=== PATIENT | male | born 1965 | race Caucasian/White ===

== ENCOUNTER 2020-04-10 19:17 | Observation (INO) | payer BC, OTHER ==
[2020-04-10 19:57] LABS: Absolute Lymphocytes (CBC) 2.2 K/uL (0.7-4.9); Basophils % 0.8 % (0-1.3); Lymphocytes % 25.6 % (15.3-44.8); MPV 7.7 fL (7.6-11.3); RBC Red Blood Cell Count 5.48 M/uL (4.33-5.43)
[2020-04-10 20:07] LABS: ALT/SGPT 72 U/L (12-78); AST/SGOT 39 U/L (15-37); Albumin 4.1 g/dL (3.4-5.0); Alkaline Phosphatase 66 U/L (45-117); BUN Blood Urea Nitrogen 15 mg/dL (7-18); Bicarbonate 25 mmol/L (21-32); Bilirubin Direct 0.1 mg/dL (0-0.2); Bilirubin Total 0.5 mg/dL (0.2-1.0); Glucose Level 106 mg/dL (74-106); Magnesium 2.4 mg/dL (1.8-2.4); NT PRO-BNP 47 pg/mL (<125); Potassium 3.8 mmol/L (3.5-5.1); Protein, Total 8.1 g/dL (6.4-8.2); Sodium Level 140 mmol/L (136-145); Troponin (Emerg Dept Use Only) < 0.02 ng/mL (0.0-0.045)
--- NOTE | 2020-04-10 20:08 | ER ---
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 Coronavirus screen: Proceed with normal triage. Ebola Screen: Patient negative for fever greater than or equal to 101.5 degrees Fahrenheit, and additional compatible Ebola Virus Disease symptoms Patient denies exposure to infectious person. Patient denies travel to an Ebola-affected area in the 21 days before illness onset. No symptoms or risks identified at this time. Initial Sepsis Screen: Does the patient meet any 2 criteria? No. Patient's initial sepsis screen is negative. Does the patient have a suspected source of infection? No. Patient's initial sepsis screen is negative. Risk Assessment: Do you want to hurt yourself or someone else? Patient reports no desire to harm self or others. Onset of symptoms was April 10, 2020. Care prior to arrival: None. Transition of care: patient was not received from another setting of care. 19:20 Method Of Arrival: Ambulatory sg 19:20 Acuity: KATHERINE 3 sg Triage Assessment: 19:30 General: Appears in no apparent distress. Behavior is calm, cooperative, appropriate vc for age. Pain: Complains of pain in chest Pain radiates to left arm Pain currently is 2 out of 10 on a pain scale. Quality of pain is described as pressure, Pain began gradually. Cardiovascular: Capillary refill < 3 seconds Patient's skin is warm and dry. Rhythm is atrial fibrillation with rapid ventricular response. Historical: - Allergies: 19:33 PENICILLINS; sg - Home Meds: 19:33 Lisinopril Oral [Active]; Antacid [Active]; Joint Pain Reliver [Active]; sg - PMHx: 19:33 Hypertension; sg - PSHx: 19:33 Hernia repair; Disc surgery; sg - Immunization history:: Adult Immunizations up to date. - Social history:: Smoking status: Patient denies any tobacco usage or history of. - Family history:: not pertinent. Screenin:20 Abuse screen: Denies threats or abuse. Nutritional screening: No deficits noted. vc Tuberculosis screening: No symptoms or risk factors identified. Fall Risk None identified. Assessment: 19:30 General: Appears in no apparent distress. uncomfortable, obese, Behavior is calm, vc cooperative, appropriate for age. Pain: Complains of pain in chest Also complains of nausea, diaphoresis. Pain: Pain does not radiate. Pain: Pain currently is 4 out of 10 on a pain scale. Quality of pain is described as pressure. Pain: Is continuous, Alleviated by nothing. Neuro: Level of Consciousness is awake, alert, obeys commands, Oriented to person, place, time, situation, Reports numbness in left arm. Cardiovascular: Reports chest pain, diaphoresis, nausea, palpitations, shortness of breath, Capillary refill < 3 seconds Patient's skin is warm and dry. Rhythm is atrial fibrillation with rapid ventricular response. Respiratory: Airway is patent Respiratory effort is even, unlabored, Respiratory pattern is regular, symmetrical. GI: Abdomen is non-distended, obese, Reports nausea. : No signs and/or symptoms were reported regarding the genitourinary system. EENT: No signs and/or symptoms were reported regarding the EENT system. Derm: Skin is intact, Skin is diaphoretic. Musculoskeletal: Circulation, motion, and sensation intact. Range of motion: intact in all extremities. 20:30 Reassessment: Patient appears in no apparent distress at this time. Patient and/or vc family updated on plan of care and expected duration. Pain level reassessed. Patient is alert, oriented x 3, equal unlabored respirations, skin warm/dry/pink. Patient states symptoms have improved. 21:00 Reassessment: Admitting provider at bedside. vc 21:30 Reassessment: Patient appears in no apparent distress at this time. Patient and/or vc family updated on plan of care and expected duration. Pain level reassessed. Patient is alert, oriented x 3, equal unlabored respirations, skin warm/dry/pink. Patient states feeling better. Patient states symptoms have improved. 22:30 Reassessment: Patient appears in no apparent distress at this time. Patient and/or vc family updated on plan of care and expected duration. Pain level reassessed. Patient is alert, oriented x 3, equal unlabored respirations, skin warm/dry/pink. Patient states feeling better. 23:30 Reassessment: Patient appears in no apparent distress at this time. Patient and/or vc family updated on plan of care and expected duration. Pain level reassessed. Patient is alert, oriented x 3, equal unlabored respirations, skin warm/dry/pink. Patient denies pain at this time. Patient states feeling better. 04/11 00:00 Reassessment: PLEASE SEE [facility] FOR FURTHER CHARTING. vc Vital Signs: 04/10 19:20 BP 166 / 125; Pulse 134; Resp 16; Temp 99.1; Pulse Ox 98% ; vc 19:33 Weight 122.47 kg (R); Height 6 ft. 0 in. (182.88 cm); sg 20:00 BP 172 / 152; Pulse 128; Resp 18; Pulse Ox 97% on R/A; vc 20:45 BP 146 / 100; Pulse 99; Resp 16; Pulse Ox 95% on R/A; vc 20:45 BP 146 / 100; Pulse 99; Resp 16; Pulse Ox 95% on R/A; vc 21:45 BP 138 / 100; Pulse 84; Resp 16; Pulse Ox 97% on R/A; vc 19:33 Body Mass Index 36.62 (122.47 kg, 182.88 cm) sg ED Course: 19:23 Patient arrived in ED. cf2 19:24 Karol Mims RN is Primary Nurse. vc 19:25 Richy Montemayor MD is Attending Physician. [facility] 19:28 Triage completed. sg 19:28 Arm band placed on. sg 19:30 Patient has correct armband on for positive identification. Placed in gown. Bed in low vc position. Call light in reach. Side rails up X2. counsellors on. Pulse ox on. NIBP on. 19:35 Inserted saline lock: 20 gauge in right wrist, using aseptic technique. Patient vc maintains SpO2 saturation greater than 95% on room air. 19:54 XRAY Chest (1 view) In Process Unspecified. EDMS 20:07 Ford Ibrahim is Hospitalizing Provider. [facility] 04/11 00:00 No provider procedures requiring assistance completed. Patient admitted, IV remains in vc place. Administered Medications: 04/10 20:20 Drug: Lovenox 1 mg/kg {Note: administered 80mg and a 40mg.} Route: Sub-Q; Site: abdomen;vc 22:00 Follow up: Response: No adverse reaction vc 20:30 Drug: Lopressor 5 mg Route: IVP; Site: right antecubital; vc 20:30 Drug: Lopressor (metoprolol TARTRATE) 50 mg Route: PO; vc 22:00 Follow up: Response: No adverse reaction vc 20:30 Drug: Aspirin Chewable Tablet 324 mg Route: PO; vc 22:00 Follow up: Response: No adverse reaction vc 20:37 Drug: Lopressor 5 mg Route: IVP; Site: right antecubital; vc 20:42 Drug: Lopressor 5 mg Route: IVP; Site: right antecubital; vc 22:00 Follow up: Response: No adverse reaction; Marked relief of symptoms vc Outcome: 20:08 Decision to Hospitalize by Provider. cayetano 04/11 00:00 Admitted to ER Hold. Please see [facility] for further documentation. vc Condition: good Instructed on the need for admit. 02:34 Patient left the ED. vc Signatures: Dispatcher [employer] EDHéctor Gunn RN RN sg Anderson, Corey, MD MD cha Frazier, Celesta cf2 Karol Mims RN RN vc Corrections: (The following items were deleted from the chart) 01:10 01:08 Reassessment: PLEASE SEE [facility] FOR FURTHER CHARTING vc vc
--- NOTE | 2020-04-10 20:09 | EDPHYS ---
Physician Documentation [facility] Name: Ramesh Olivares Age: 54 yrs Sex: Male : 1965 Arrival Date: 04/10/2020 Time: 19:23 Bed 20 Private MD: ED Physician Richy Montemayor HPI: 04/10 20:03 This 54 yrs old Male presents to ER via Ambulatory with complaints of cayetano Numbness Of Arm, Chest Pain, High Blood Pressure. 20:03 The patient or guardian complains of pain, that is acute. The complaints affect the cayetano left bicep and left tricep. Historical: - Allergies: 19:33 PENICILLINS; sg - Home Meds: 19:33 Lisinopril Oral [Active]; Antacid [Active]; Joint Pain Reliver [Active]; sg - PMHx: 19:33 Hypertension; sg - PSHx: 19:33 Hernia repair; Disc surgery; sg - Immunization history:: Adult Immunizations up to date. - Social history:: Smoking status: Patient denies any tobacco usage or history of. - Family history:: not pertinent. ROS: 20:03 Constitutional: Negative for fever, chills, and weight loss, Eyes: Negative for injury, cayetano pain, redness, and discharge, ENT: Negative for injury, pain, and discharge, Neck: Negative for injury, pain, and swelling, Respiratory: Negative for shortness of breath, cough, wheezing, and pleuritic chest pain, Abdomen/GI: Negative for abdominal pain, nausea, vomiting, diarrhea, and constipation, Back: Negative for injury and pain, : Negative for injury, bleeding, discharge, and swelling, MS/Extremity: Negative for injury and deformity, Skin: Negative for injury, rash, and discoloration, Neuro: Negative for headache, weakness, numbness, tingling, and seizure, Psych: Negative for depression, anxiety, suicide ideation, homicidal ideation, and hallucinations, Allergy/Immunology: Negative for hives, rash, and allergies, Endocrine: Negative for neck swelling, polydipsia, polyuria, polyphagia, and marked weight changes, Hematologic/Lymphatic: Negative for swollen nodes, abnormal bleeding, and unusual bruising. 20:03 Cardiovascular: Positive for chest pain, palpitations. Exam: 20:03 Constitutional: This is a well developed, well nourished patient who is awake, alert, cayetano and in no acute distress. Head/Face: Normocephalic, atraumatic. Eyes: Pupils equal round and reactive to light, extra-ocular motions intact. Lids and lashes normal. Conjunctiva and sclera are non-icteric and not injected. Cornea within normal limits. Periorbital areas with no swelling, redness, or edema. ENT: Nares patent. No nasal discharge, no septal abnormalities noted. Tympanic membranes are normal and external auditory canals are clear. Oropharynx with no redness, swelling, or masses, exudates, or evidence of obstruction, uvula midline. Mucous membranes moist. Neck: Trachea midline, no thyromegaly or masses palpated, and no cervical lymphadenopathy. Supple, full range of motion without nuchal rigidity, or vertebral point tenderness. No Meningismus. Chest/axilla: Normal chest wall appearance and motion. Nontender with no deformity. No lesions are appreciated. Respiratory: Lungs have equal breath sounds bilaterally, clear to auscultation and percussion. No rales, rhonchi or wheezes noted. No increased work of breathing, no retractions or nasal flaring. Abdomen/GI: Soft, non-tender, with normal bowel sounds. No distension or tympany. No guarding or rebound. No evidence of tenderness throughout. Back: No spinal tenderness. No costovertebral tenderness. Full range of motion. Male : Normal genitalia with no discharge or lesions. Skin: Warm, dry with normal turgor. Normal color with no rashes, no lesions, and no evidence of cellulitis. MS/ Extremity: Pulses equal, no cyanosis. Neurovascular intact. Full, normal range of motion. Neuro: Awake and alert, GCS 15, oriented to person, place, time, and situation. Cranial nerves II-XII grossly intact. Motor strength 5/5 in all extremities. Sensory grossly intact. Cerebellar exam normal. Normal gait. Psych: Awake, alert, with orientation to person, place and time. Behavior, mood, and affect are within normal limits. 20:03 Cardiovascular: Rate: tachycardic, Rhythm: irregularly irregular, Pulses: Pulses are 4+ in bilateral radial, brachial, femoral, popliteal, posterior tibial and and dorsalis pedis arteries.. Heart sounds: normal, murmur, Edema: is not appreciated, JVD: is not appreciated. 20:09 ECG was reviewed by the Attending Physician. [facility] Vital Signs: 19:20 BP 166 / 125; Pulse 134; Resp 16; Temp 99.1; Pulse Ox 98% ; vc 19:33 Weight 122.47 kg (R); Height 6 ft. 0 in. (182.88 cm); sg 20:00 BP 172 / 152; Pulse 128; Resp 18; Pulse Ox 97% on R/A; vc 20:45 BP 146 / 100; Pulse 99; Resp 16; Pulse Ox 95% on R/A; vc 20:45 BP 146 / 100; Pulse 99; Resp 16; Pulse Ox 95% on R/A; vc 21:45 BP 138 / 100; Pulse 84; Resp 16; Pulse Ox 97% on R/A; vc 19:33 Body Mass Index 36.62 (122.47 kg, 182.88 cm) sg MDM: 19:25 Patient medically screened. [facility] 20:05 Data reviewed: vital signs, nurses notes, lab test result(s), EKG, radiologic studies, [facility] plain films. 20:05 Differential diagnosis: Anxiety Reaction asthma, Myocardial Infarction pulmonary edema, cayetano Pulmonary Embolism reactive airway disease. Antibiotic administration: Not indicated. HEART Score: History: Slightly Suspicious (0), ECG: Normal (0), Age: > 45 and < 65 years (1), Risk Factors: 1 or 2 risk factors (1), [Hypertension] [Obesity]. The patient was given aspirin in the Emergency Department. The patient's Wells Deep Vein Thrombosis Score was calculated as follows: Total Score: 0-2 Pts- Low Risk. The patient's pulmonary embolism risk score was calculated as follows: the patients heart rate is greater than 100 beats per minute (1.5 Pts) Total Score: 0-2 points. This patient was found to be at low risk for a pulmonary embolism by using the Well's assessment criteria. MIKAELA Risk Score: not applicable, 1 - patient's age is greater or equal to 65 years, 1 - Three or more CAD risk factors, 1- Known CAD, 1 - ASA use in past 7 days, 1 - Recent [<24hrs] Severe Angina, 1 - Elevated Cardiac Markers, 1 - ST deviation >0.5mm, TOTAL SCORE = 0. Immunization status: Influenza vaccine: Data interpreted: air sampling and monitoring: rate is 125 beats/min, Pulse oximetry: on is 125 %. Test interpretation: by ED physician or midlevel provider: ECG, plain radiologic studies. 04/10 19:26 Order name: Basic Metabolic Panel; Complete Time: 20:08 [facility] 04/10 19:26 Order name: CBC with Diff; Complete Time: 20:08 [facility] 04/10 19:26 Order name: LFT's; Complete Time: 20:08 [facility] 04/10 19:26 Order name: Magnesium; Complete Time: 20:08 [facility] 04/10 19:26 Order name: NT PRO-BNP; Complete Time: 20:08 [facility] 04/10 19:26 Order name: Troponin (emerg Dept Use Only); Complete Time: 20:08 [facility] 04/10 19:26 Order name: XRAY Chest (1 view) [facility] 04/10 19:26 Order name: EKG; Complete Time: 19:27 [facility] 04/10 20:03 Order name: TSH; Complete Time: 20:45 [facility] 04/11 00:57 Order name: Troponin I [facility] 04/10 19:26 Order name: Cardiac monitoring; Complete Time: 19:38 [facility] 04/10 19:26 Order name: EKG - Nurse/Tech; Complete Time: 19:38 [facility] 04/10 19:26 Order name: IV Saline Lock; Complete Time: 19:38 [facility] 04/10 19:26 Order name: Labs collected and sent; Complete Time: 19:38 [facility] 04/10 19:26 Order name: O2 Per Protocol; Complete Time: 19:38 [facility] 04/10 19:26 Order name: O2 Sat Monitoring; Complete Time: 19:38 [facility] EC:09 Rate is 125 beats/min. Rhythm is irregularly irregular. QRS [place] is Normal. [place] interval cayetano is normal. QRS interval is normal. QT interval is normal. No Q waves. T waves are Normal. No ST changes noted. Clinical impression: Atrial Fibrillation and No evidence of ischemia. Interpreted by me. Reviewed by me. Administered Medications: 20:20 Drug: Lovenox 1 mg/kg {Note: administered 80mg and a 40mg.} Route: Sub-Q; Site: abdomen;vc 22:00 Follow up: Response: No adverse reaction vc 20:30 Drug: Lopressor 5 mg Route: IVP; Site: right antecubital; vc 20:30 Drug: Lopressor (metoprolol TARTRATE) 50 mg Route: PO; vc 22:00 Follow up: Response: No adverse reaction vc 20:30 Drug: Aspirin Chewable Tablet 324 mg Route: PO; vc 22:00 Follow up: Response: No adverse reaction vc 20:37 Drug: Lopressor 5 mg Route: IVP; Site: right antecubital; vc 20:42 Drug: Lopressor 5 mg Route: IVP; Site: right antecubital; vc 22:00 Follow up: Response: No adverse reaction; Marked relief of symptoms vc Disposition: 04/10/20 20:08 Hospitalization ordered by Ford Ibrahim for Observation. Preliminary diagnosis are Other chest pain, Atrial fibrillation and flutter - rvr, new onset, Essential (primary) hypertension, Obesity, unspecified. - Bed requested for Telemetry/MedSurg (observation). - Status is Observation. vc - Condition is Stable. - Problem is new. - Symptoms have improved. Signatures: Dispatcher [employer] EDMS Héctor Deras RN RN Richy Montemayor MD MD cha Attema, Lee, [employer] [employer] Lou Urbano RN RN tl1 Karol Mims RN RN vc Corrections: (The following items were deleted from the chart) 22:21 20:08 Hospitalization Ordered by Ford Ibrahim for Observation. Preliminary diagnosis tl1 is Other chest pain; Atrial fibrillation and flutter - rvr, new onset; Essential (primary) hypertension; Obesity, unspecified. Bed requested for Telemetry/MedSurg (observation). Status is Observation. Condition is Stable. Problem is new. Symptoms have improved. [facility] 04/11 01:35 04/10 22:21 04/10/2020 20:08 Hospitalization Ordered by Ford Ibrahim for Observation. tl1 Preliminary diagnosis is Other chest pain; Atrial fibrillation and flutter - rvr, new onset; Essential (primary) hypertension; Obesity, unspecified. Bed requested for [facility] ER HOLD. Status is Observation. Condition is Stable. Problem is new. Symptoms have improved. tl1 04/11 02:34 01:35 04/10/2020 20:08 Hospitalization Ordered by Ford Ibrahim for Observation. vc Preliminary diagnosis is Other chest pain; Atrial fibrillation and flutter - rvr, new onset; Essential (primary) hypertension; Obesity, unspecified. Bed requested for Telemetry/MedSurg (observation). Status is Observation. Condition is Stable. Problem is new. Symptoms have improved. tl1
[2020-04-10] MEDS ORDERED: ASPIRIN 81 MG CHEWABLE TABLET ONE (20:32)
[2020-04-10] MEDS ORDERED: METOPROLOL TAR 50 MG TAB ONE (20:32)
[2020-04-10] MEDS ORDERED: ENOXAPARIN 40 MG/0.4 ML SQ ONE (20:33)
[2020-04-10] MEDS ORDERED: METOPROLOL TARTRATE 5 MG/5 ML INJ IV ONE (20:33)
[2020-04-10] MEDS ORDERED: ENOXAPARIN 80 MG/0.8 ML SQ ONE (20:33)
--- NOTE | 2020-04-10 20:51 | RAD REPORT ---
EXAM DESCRIPTION: RAD - Chest Single View - 04/10/2020 7:54 pm CLINICAL HISTORY: CHEST PAIN COMPARISON: None TECHNIQUE: AP portable chest image was obtained 04/10/2020 7:54 pm . FINDINGS: Lungs are clear. Heart and vasculature are normal. No measurable pleural effusion and no p neumothorax. No acute bony abnormality seen. No acute aortic findings suspected. IMPRESSION: No acute cardiopulmonary process.
--- NOTE | 2020-04-10 21:27 | P.HP ---
Certification for Inpatient Patient admitted to: Observation With expected LOS: <2 Midnights Practitioner: I am a practitioner with admitting privileges, knowledge of patient current condition, hospital course, and medical plan of care. Services: Services provided to patient in accordance with Admission requirements found in Title 42 Section 412.3 of the Code of Federal Regulations Patient History Date of Service: 04/10/20 Reason for admission: Palpitation, chest tightness History of Present Illness: 54-year-old obese gentleman with a history of hypertension presented emergency department with a complaint of sudden onset of chest tightness and palpitation that persisted for several hrs today. Patient reports prior intermittent palpitation that last only a few min at a time. He denied any chest pain. Denied any cough or shortness of breath. Patient was found to be in AFib with RVR in the ED. Initial troponin is negative. Chest x-ray shows no acute abnormality. He converted to sinus rhythm spontaneously. Patient was in sinus rhythm and I saw him in the ED. No significant electrolyte abnormality. Patient is taking Saxenda short for weight loss. - Past Medical/Surgical History -: Hypertension -: Obesity -: GERD - Family History Family History: Reviewed- Non-Contributory - Social History Alcohol use: No CD- Drugs: No Place of Residence: Home Review of Systems Other: Except as documented, all other systems reviewed and negative. Physical Examination - Physical Exam General: Alert, In no apparent distress, Oriented x3, Obese HEENT: Atraumatic, Normocephalic, Mucous membr. moist/pink, Sclerae nonicteric Neck: Supple, JVD not distended Respiratory: Clear to auscultation bilaterally, Normal air movement Cardiovascular: No edema, Regular rate/rhythm, Normal S1 S2, No murmurs Capillary refill: <2 Seconds Gastrointestinal: Normal bowel sounds, Soft and benign, No tenderness Musculoskeletal: No swelling, No erythema Integumentary: No rashes Neurological: Normal speech, Normal strength at 5/5 x4 extr, Cranial nerves 3-12 intact - Studies Laboratory Data (last 24 hrs) 04/10/20 19:35: WBC 8.6, Hgb 17.5, Hct 51.0 H, Plt Count 277 04/10/20 19:35: Sodium 140, Potassium 3.8, BUN 15, Creatinine 0.90, Glucose 106, Magnesium 2.4, Total Bilirubin 0.5, AST 39 H, ALT 72, Alkaline Phosphatase 66 Assessment and Plan - Problems (Diagnosis) (1) Atrial fibrillation with RVR Current Visit: Yes Status: Acute (2) Hypertension Current Visit: Yes Status: Acute (3) GERD (gastroesophageal reflux disease) Current Visit: Yes Status: Acute (4) Obesity Current Visit: Yes Status: Acute - Plan Place under observation. Trend troponin Obtain echocardiogram Continue lisinopril for hypertension. Add low dose metoprolol Cardiology consult. Low [id number] Score. - Advance Directives Does patient have a Living Will: No Does patient have a Durable POA for Healthcare: No
[2020-04-11 00:26] VITALS: BMI 36.6
[2020-04-11] MEDS ORDERED: LIDOCAINE 1% W/EPI 1:100,000 MDV 50 ML VIAL ONE (01:37)
[2020-04-11 03:16] VITALS: O2SAT 98
[2020-04-11 04:37] LABS: Absolute Lymphocytes (CBC) 2.2 K/uL (0.7-4.9); Basophils % 0.5 % (0-1.3); Hematocrit 46.8 % (39.6-49.0); Lymphocytes % 28.2 % (15.3-44.8); RBC Red Blood Cell Count 4.89 M/uL (4.33-5.43)
[2020-04-11 04:48] LABS: Magnesium 2.6 mg/dL (1.8-2.4); Potassium 4.2 mmol/L (3.5-5.1)
[2020-04-11] MEDS ORDERED: METOPROLOL TAR 25 MG TAB PO SCH ×2 (06:00→18:00)
[2020-04-11 08:52] LABS: Urine Appearance CLEAR; Urine Bilirubin NEGATIVE (NEG); Urine Blood NEGATIVE (NEG); Urine Color YELLOW; Urine Glucose NEGATIVE (NEG); Urine Protein NEGATIVE (NEG); Urine Specific Gravity 1.025 (1.005-1.030); Urine Urobilinogen 0.2 mg/dL (0.2-1.0)
[2020-04-11 08:57] LABS: Urine Microscopic Reflex NO UMIC
[2020-04-11] MEDS ORDERED: ENOXAPARIN 40 MG/0.4 ML SQ SCH (09:00)
--- NOTE | 2020-04-11 10:50 | CON ---
Date of Consultation: 04/11/2020 Chief Complaint: Chest pain and palpitations. History Of Present Illness: This is a 54-year-old male with history of hypertension, presented to [facility] emergency room with palpitations and chest pain started last night and it is described as the tight ness in the left chest and across the sternum that goes to the upper extremities. Denies having any shortness of breath, but felt nauseated with it and also felt some palpitations, was found to have at rial fibrillation with RVR in the emergency room and then converted to sinus rhythm spontaneously. D oes not have any nausea, vomiting, diarrhea, or further palpitations. Past Medical History: Hypertension, obesity, and acid reflux. Medications: Refer to reconciliation sheet for detailed list. Allergies: REVIEWED. Family History: No premature coronary artery disease or cancer. Social History: Does not smoke or drink. Does not use any drugs. Review of Systems: All systems reviewed, they were negative except for mentioned in the HPI. Physical Examination: Vital Signs: Temperature showed 99.1, heart rate is 77, breathing at 18, blood pressure 116/95, satu rating 94% on room air. General: Pleasant, middle-aged male, in no apparent distress. Head and Neck: Pupils are equal, react to light. Intact eye movements. No JVD. No cervical lympha denopathy. Neck: Supple. Thyroid is not enlarged. Lungs: Clear to auscultation bilaterally. No rhonchi, rales, or crackles. No accessory muscle use. Heart: Regular rate and rhythm. No extra sounds. Abdomen: Soft, nontender. Bowel sounds positive. No organomegaly. No masses or hernia. No rigidi ty or rebound. Extremities: No edema, clubbing, or cyanosis. Intact pulses. Skin: No rash noted. Neurologic: Alert, awake, and oriented x3. No acute focal deficits associated. Investigations: EKG without acute specific abnormalities. Troponin x3 are negative. Creatinine is 0.93 and white blood cell count 7.9, hemoglobin 15.9. Assessment And Plan: 1.Atrial fibrillation with rapid ventricular response. It was a paroxysmal episode that has convert ed to sinus rhythm. Recommend to increase beta sreekanth further for better heart rate control and bet ter blood pressure control, may be started on 25 mg of Lopressor twice a day and then increase furthe r as needed. 2.Obtain echocardiogram. 3.Chest pain. When the patient went into atrial fibrillation, he had chest pain. Still has some so reness. The cardiac enzymes are negative. Ruled out myocardial infarction. If patient is completel y chest pain free today, it is okay from my standpoint to be discharged and schedule an exercise stre ss test as an outpatient. However, patient has history of chest pain, if there are any abnormalities on echocardiogram, then we will recommend coronary angiogram. 4.Hypertension is uncontrolled. Increase beta sreekanth as above and recommend to start lisinopril 10 mg daily and adjust further for better blood pressure control. Thank you for the courtesy of this consultation. /LYNNE Voice ID: [id number] Report ID: [id number]
[2020-04-11 12:44] VITALS: BP 149/93; TEMP 97.5
--- NOTE | 2020-04-11 13:04 | ECHO ---
HEIGHT: 6 ft 0 in WEIGHT: 270 lb 0 oz DATE OF STUDY: 04/11/[address]: jose r butler 2-DIMENSIONAL: YES M.MODE: YES DOPPLER: YES COLOR FLOW: YES TDS: NO PORTABLE: NO DEFINITY: NO BUBBLE STUDY: NO DIAGNOSIS: ATRIAL FIBRILLATION CARDIAC HISTORY: CATHERIZATION: NO SURGERY: NO PROSTHETIC VALVE: NO PACEMAKER: NO MEASUREMENTS (cm) DIASTOLIC (NORMALS) SYSTOLIC (NORMALS) IVSd 1.1 (0.6-1.2) LA Diam 3.8 (1.9-4.0) LVEF 55-60% LVIDd 5.2 (3.5-5.7) LVIDs 2.8 (2.0-3.5) %FS 46% LVPWd 1.2 (0.6-1.2) Ao Diam 3.2 (2.0-3.7) 2 DIMENSIONAL ASSESSMENT: RIGHT ATRIUM: NORMAL LEFT ATRIUM: NORMAL RIGHT VENTRICLE: NORMAL LEFT VENTRICLE: NORMAL TRICUSPID VALVE: TRACE TRICUSPID REGURGITATION MITRAL VALVE: NORMAL PULMONIC VALVE: NORMAL AORTIC VALVE: MILD CALCIFICATION PERICARDIAL EFFUSION: NONE AORTIC ROOT: NORMAL LEFT VENTRICULAR WALL MOTION: NORMAL. DOPPLER/COLOR FLOW: NORMAL. COMMENTS: NORMAL LEFT VENTRICULAR EJECTION FRACTION 55-60%. NORMAL WALL MOTION. MILD AORTIC VALVE CALCIFICATION, NO AORTIC STENOSIS. TECHNOLOGIST: NORAH BASS
--- NOTE | 2020-04-11 14:09 | P.DS ---
Admission Date: 04/10/20 Discharge Date: 04/11/20 Primary Care Provider: Dr. Espinosa([place]) Disposition: ROUTINE DISCHARGE Discharge Condition: GOOD Reason for Admission: Palpitation, chest tightness Consultations: Cardiology-Dr. Huang Procedures: Medical problem list: Palpitations, chest pain secondary to New onset atrial fibrillation with RVR now normal sinus rhythm Hypertension GERD Brief History of Present Illness: 54-year-old male with history of hypertension presented with palpitations and chest pain. Patient found to have atrial fibrillation with RVR. Patient was admitted for further evaluation. Hospital Course: Patient presented with palpitation and chest pain related to atrial fibrillation with RVR. Patient was started on metoprolol. While on medication, patient converted to normal sinus rhythm. Patient was seen and evaluated by Cardiology. Echo obtained. Cardiology recommends no further intervention at this time. Home medications were reviewed. Patient is taking Saxenda. This has a side effect of elevated heart rate. Will recommend to discontinue that medication at this time. At discharge patient will continue with metoprolol 25 mg 1 pill twice daily and aspirin 81 mg daily. No need for chronic anti coagulation therapy at this time. Patient will follow up with cardiology in 1-2 weeks to further evaluate and monitor his care. Patient will have outpatient cardiac stress test to further evaluate. Patient with hypertension. Patient takes lisinopril. Blood pressure uncontrolled. Patient had his beta-sreekanth increased. At discharge patient will continue with lisinopril 10 mg daily and metoprolol 25 mg 1 pill twice daily. Recommend to monitor blood pressure daily. Recommend to maintain blood pressure less than 140/90. Further adjustment may be required. This can be done with the help of Cardiology. Patient with GERD. At discharge patient will continue with medication. Will recommend to discontinue nonsteroidal anti-inflammatories. As this may exacerbate GERD. Therefore will recommend to discontinue his current nonsteroidal anti-inflammatory. Patient had COVID test done. Results pending at discharge. For now patient should quarantine until results are finalize. He can call back in the next 1-2 days for results. Recommend to continue social distancing, hand washing and face mass. CDC guidelines will be provided. Vital Signs/Physical Exam: Temp Pulse Resp BP Pulse Ox 97.5 F 73 16 149/93 H 94 04/11/20 12:00 04/11/20 12:00 04/11/20 12:00 04/11/20 12:00 04/11/20 12:00 General: Alert, In no apparent distress, Oriented x3, Cooperative HEENT: Atraumatic Neck: Supple Respiratory: Clear to auscultation bilaterally, Normal air movement Cardiovascular: Normal pulses, Regular rate/rhythm Gastrointestinal: Normal bowel sounds Neurological: Normal speech, Normal strength at 5/5 x4 extr, Normal tone, Normal affect Laboratory Data at Discharge: WBC 7.9 K/uL (4.3-10.9) 04/11/20 04:06 Hgb 15.9 g/dL (13.6-17.9) 04/11/20 04:06 Hct 46.8 % (39.6-49.0) 04/11/20 04:06 Plt Count 254 K/uL (152-406) 04/11/20 04:06 Sodium 140 mmol/L (136-145) 04/11/20 04:06 Potassium 4.2 mmol/L (3.5-5.1) 04/11/20 04:06 BUN 19 mg/dL (7-18) H 04/11/20 04:06 Creatinine 0.93 mg/dL (0.55-1.3) 04/11/20 04:06 Glucose 96 mg/dL (74-106) 04/11/20 04:06 Phosphorus 5.0 mg/dL (2.5-4.9) H 04/11/20 04:06 Magnesium 2.6 mg/dL (1.8-2.4) H 04/11/20 04:06 Total Bilirubin 0.5 mg/dL (0.2-1.0) 04/10/20 19:35 AST 39 U/L (15-37) H 04/10/20 19:35 ALT 72 U/L (12-78) 04/10/20 19:35 Alkaline Phosphatase 66 U/L (45-117) 04/10/20 19:35 Troponin I < 0.02 ng/mL (0.0-0.045) 04/11/20 04:06 Home Medications: Aspirin [Aspirin EC 81 MG] 81 mg PO DAILY #90 tablet. 04/11/20 Liraglutide [Saxenda] 3 mg IN DAILY 04/11/20 Lisinopril [Zestril] 10 mg PO DAILY 04/11/20 Metoprolol Tartrate [Lopressor*] 25 mg PO BID 6AM 6PM #60 tab 04/11/20 Pantoprazole [Protonix Tab*] 40 mg PO DAILY 04/11/20 Sildenafil Citrate 100 mg PO PRN 04/11/20 Zolpidem Tartrate [Ambien*] 10 mg PO BEDTIME PRN PRN 04/11/20 New Medications: Aspirin [Aspirin EC 81 MG] 81 mg PO DAILY #90 tablet. Metoprolol Tartrate [Lopressor*] 25 mg PO BID 6AM 6PM #60 tab Patient Discharge Instructions: 1. Follow up with PCP in 1 week to follow up this hospitalization. 2. Patient presented with palpitation and chest pain related to atrial fibrillation with RVR. Patient was started on metoprolol. While on medication, patient converted to normal sinus rhythm. Patient was seen and evaluated by Cardiology. Echo obtained. Cardiology recommends no further intervention at this time. Home medications were reviewed. Patient is taking Saxenda. This has a side effect of elevated heart rate. Will recommend to discontinue that medication at this time. At discharge patient will continue with metoprolol 25 mg 1 pill twice daily and aspirin 81 mg daily. No need for chronic anti coagulation therapy at this time. Patient will follow up with cardiology in 1-2 weeks to further evaluate and monitor his care. Patient will have outpatient cardiac stress test to further evaluate. 3. Patient with hypertension. Patient takes lisinopril. Blood pressure uncontrolled. Patient had his beta-sreekanth increased. At discharge patient will continue with lisinopril 10 mg daily and metoprolol 25 mg 1 pill twice daily. Recommend to monitor blood pressure daily. Recommend to maintain blood pressure less than 140/90. Further adjustment may be required. This can be done with the help of Cardiology. 4. Patient with GERD. At discharge patient will continue with medication. Will recommend to discontinue nonsteroidal anti-inflammatories. As this may exacerbate GERD. Therefore will recommend to discontinue his current nonsteroidal anti-inflammatory. 5. Patient had COVID test done. Results pending at discharge. For now patient should quarantine until results are finalized. He can call back in the next 1-2 days for results. Recommend to continue social distancing, hand washing and face mass. CDC guidelines will be provided. Diet: AHA Activity: Ad vince Time spent managing pt's care (in minutes): 55
== END 2020-04-11 14:50 | disposition home or self-care (01) ==
LOC: ER 19:17 → ERHOLD 22:04 → 2ND 04-11 02:04
PROVIDERS: ADMIT Internal Medicine; ATTEND Internal Medicine
DX: I48.20 Chronic atrial fibrillation, unspecified (principal); I10 Essential (primary) hypertension; K21.9 Gastro-esophageal reflux disease without esophagitis; E66.9 Obesity, unspecified; Z68.36 Body mass index [BMI] 36.0-36.9, adult; Z11.59 Encounter for screening for other viral diseases; I70.0 Atherosclerosis of aorta; Z79.82 Long term (current) use of aspirin; Z79.899 Other long term (current) drug therapy
CPT/HCPCS: 93005; 93306; 85025 ×2; 80048 ×2; 36415; 83735 ×2; 84100; 80076; 84443; 81003; 84484 ×3; 83880; 71045; 96372; 96374; 99285; U0002; J1650 ×2; G0378 ×2